=== PATIENT | female | born 1995 | race Caucasian/White ===

== ENCOUNTER 2018-12-30 10:08 | Emergency (ER) | payer OTHER ==
[~2018-12-30] VITALS: Ht 167.6 cm; Wt 59.0 kg
[2018-12-30] MEDS ORDERED: ONDANSETRON 4 MG/2 ML (SDV) Z0FRAN ONE (10:22)
[2018-12-30] MEDS ORDERED: NS IV 1000 ML 1,000 ML IV ONE (10:27)
[2018-12-30] MEDS ORDERED: ONDANSETRON 4 MG/2 ML (SDV) Z0FRAN IVP ONE (10:30)
[2018-12-30] MEDS ORDERED: NS IV 1000 ML 1,000 ML IV STA (10:35)
[2018-12-30] MEDS ORDERED: KETOROLAC 30 MG/ML VIAL IVP STA (10:35)
[2018-12-30 10:41] LABS: BASOPHILS % (AUTO) 0 % (0-10); EOSINOPHILS % (AUTO) 0 % (0-10); HEMATOCRIT 42 % (35-52); HEMOGLOBIN 14.8 G/DL (11.5-16.0); LYMPHOCYTES # (AUTO) 0.9 X 10^3 (1.0-4.0); LYMPHOCYTES % (AUTO) 21 % (12-44); MEAN CORPUSCULAR HEMOGLOBIN 30 PG (25-34); MEAN CORPUSCULAR HGB CONC 35 G/DL (32-36); MEAN CORPUSCULAR VOLUME 85 FL (80-99); MEAN PLATELET VOLUME 10.4 FL (7.4-10.4); MONOCYTES % (AUTO) 23 % (0-12); NEUTROPHILS # (AUTO) 2.3 X 10^3 (1.8-7.8); NEUTROPHILS % (AUTO) 56 % (42-75); PLATELET COUNT 194 10^3/uL (130-400); RED CELL DISTRIBUTION WIDTH 12.6 % (10.0-14.5); WHITE BLOOD COUNT 4.1 10^3/uL (4.3-11.0)
[2018-12-30] MEDS ORDERED: ONDA8TAB13 PO (10:48)
[2018-12-30] MEDS ORDERED: OMEP20TA7 PO (10:49)
--- NOTE | 2018-12-30 10:54 | ED Abdominal Pain ---
General Chief Complaint: Abdominal/GI Problems Stated Complaint: ABD PAIN;VOMITING BLOOD Nursing Triage Note: PT TO ROOM 6 PER W/C PT CO OF ABD PAIN SINCE YESTERDAY AND VOMITING, STATES VOMITED SOME BLOOD YESTERDAY, PT HAS TEMP 100.0 AX. PT HYPERVENTILATING, CO OF NUMBNESS IN HANDS. STATES PAIN 10/10. PT WAS SEEN AT [facility] YESTERDAY Sepsis Screen: No Definite Risk Source of Information: Patient Exam Limitations: No Limitations History of Present Illness Date Seen by Provider: Dec 30, 2018 Time Seen by Provider: 10:27 Initial Comments Here with report of increasing abdominal pain since yesterday and several days of abdominal pain. Apparently she's been vomiting intermittently over the last month and noted some blood yesterday and was seen had [facility]. She was started on omeprazole and ondansetron. Today she presents with fever and markedly worsening right lower quadrant abdominal pain. Does have pain that is encompassing the right side. Denies dysuria or diarrhea with last normal bowel movement yesterday and further normal urination this morning. Does have nausea currently. Complains of some upper respiratory symptoms including cough and runny nose with congestion. Timing/Duration: 1 Week, Getting Worse Severity/Quality: Moderate Location: RUQ, RLQ Radiation: LUQ, LLQ, Back Activities at Onset: None Modifying Factors: Worsens With Eating; Improves With Resting Associated Symptoms: Back Pain; No Chest Pain; Fever/Chills, Fatigue, Nausea/ Vomiting; No Shortness of Air, No Weakness; Other (hyperventilating) Allergies and Home Medications Allergies Coded Allergies: No Known Drug Allergies (Unverified , 12/30/18) Patient Home Medication List Home Medication List Reviewed: Yes Review of Systems Review of Systems Constitutional: see HPI, chills, fever EENTM: No Ear Pain; Nose Congestion, Throat Pain Respiratory: See HPI, Cough; Denies Shortness of Air Cardiovascular: No Symptoms Reported Gastrointestinal: See HPI; Denies Diarrhea, Denies Rectal Bleeding Genitourinary: No Symptoms Reported Musculoskeletal: see HPI Skin: No lesions, No rash Psychiatric/Neurological: Anxiety, Paresthesia (fingers bilateral) Endocrine: No Symptoms Reported All Other Systems Reviewed Negative Unless Noted: Yes Past Ksbpqru-Ilguoa-Vrllry Hx Past Med/Social Hx: Reviewed Nursing Past Med/Soc Hx Patient Social History Alcohol Use: Occasionally Uses Recreational Drug Use: No Smoking Status: Never a Smoker Recent Foreign Travel: No Contact w/Someone Who Travel: No Recent Infectious Disease Expo: No Recent Hopitalizations: No Past Medical History Surgeries: No Respiratory: No Cardiac: No Neurological: No Last Menstrual Period: Nov 30, 2018 Genitourinary: No Gastrointestinal: No Musculoskeletal: No Endocrine: No HEENT: No Cancer: No Psychosocial: No Integumentary: No Blood Disorders: No Family Medical History Reviewed Nursing Family Hx Physical Exam Vital Signs Vital Signs - First Documented 12/30/18 10:19 Temp 100.0 Pulse 109 Resp 20 B/P (MAP) 129/79 (96) Capillary Refill : Less Than 3 Seconds Height/Weight/BMI Height: 5'6.00" Weight: 130lbs. oz. 58.443573xw; BMI Method:Stated General Appearance: WD/WN, no apparent distress HEENT: PERRL/EOMI, TMs normal, pharyngeal erythema (mild) Neck: full range of motion, supple, normal inspection Respiratory: lungs clear, normal breath sounds Cardiovascular: regular rate, rhythm, no murmur Gastrointestinal: soft, guarding (right lower); No rebound; tenderness ( throughout the greatest on right side.) Extremities: non-tender, normal inspection Back: normal inspection, no CVA tenderness, no vertebral tenderness Neurologic/Psychiatric: alert, oriented x 3 Skin: normal color, warm/dry, other (erythema noted to the cheeks bilaterally) Focused Exam Lactate Level 12/30/18 10:25: Lactic Acid Level 1.50 Lactic Acid Level Laboratory Tests Test 12/30/18 10:25 Lactic Acid Level 1.50 MMOL/L (0.50-2.00) Progress/Results/Core Measures Results/Orders Lab Results Laboratory Tests Test 12/30/18 10:25 12/30/18 11:38 Range/Units White Blood Count 4.1 L 4.3-11.0 10^3/uL Red Blood Count 4.98 4.35-5.85 10^6/uL Hemoglobin 14.8 11.5-16.0 G/DL Hematocrit 42 35-52 % Mean Corpuscular Volume 85 80-99 FL Mean Corpuscular Hemoglobin 30 25-34 PG Mean Corpuscular Hemoglobin Concent 35 32-36 G/DL Red Cell Distribution Width 12.6 10.0-14.5 % Platelet Count 194 130-400 10^3/uL Mean Platelet Volume 10.4 7.4-10.4 FL Neutrophils (%) (Auto) 56 42-75 % Lymphocytes (%) (Auto) 21 12-44 % Monocytes (%) (Auto) 23 H 0-12 % Eosinophils (%) (Auto) 0 0-10 % Basophils (%) (Auto) 0 0-10 % Neutrophils # (Auto) 2.3 1.8-7.8 X 10^3 Lymphocytes # (Auto) 0.9 L 1.0-4.0 X 10^3 Monocytes # (Auto) 1.0 0.0-1.0 X 10^3 Eosinophils # (Auto) 0.0 0.0-0.3 10^3/uL Basophils # (Auto) 0.0 0.0-0.1 10^3/uL Neutrophils % (Manual) 55 % Lymphocytes % (Manual) 23 % Monocytes % (Manual) 16 % Eosinophils % (Manual) 0 % Basophils % (Manual) 0 % Band Neutrophils 6 % Blood Morphology Comment NORMAL Sodium Level 136 135-145 MMOL/L Potassium Level 3.5 L 3.6-5.0 MMOL/L Chloride Level 103 98-107 MMOL/L Carbon Dioxide Level 18 L 21-32 MMOL/L Anion Gap 15 H 5-14 MMOL/L Blood Urea Nitrogen 12 7-18 MG/DL Creatinine 0.92 0.60-1.30 MG/DL Estimat Glomerular Filtration Rate > 60 BUN/Creatinine Ratio 13 Glucose Level 106 H 70-105 MG/DL Lactic Acid Level 1.50 0.50-2.00 MMOL/L Calcium Level 9.8 8.5-10.1 MG/DL Corrected Calcium 8.5-10.1 MG/DL Total Bilirubin 0.6 0.1-1.0 MG/DL Aspartate Amino Transf (AST/SGOT) 24 5-34 U/L Alanine Aminotransferase (ALT/SGPT) 14 0-55 U/L Alkaline Phosphatase 52 40-136 U/L C-Reactive Protein High Sensitivity 4.20 H 0.00-0.50 MG/DL Total Protein 8.0 6.4-8.2 GM/DL Albumin 4.8 H 3.2-4.5 GM/DL Serum Test, Qualitative NEGATIVE NEGATIVE Urine Color YELLOW Urine Clarity CLEAR Urine pH 6 5-9 Urine Specific [place] 1.025 H 1.016-1.022 Urine Protein 2+ H NEGATIVE Urine Glucose (UA) NEGATIVE NEGATIVE Urine Ketones 4+ H NEGATIVE Urine Nitrite NEGATIVE NEGATIVE Urine Bilirubin NEGATIVE NEGATIVE Urine Urobilinogen NORMAL NORMAL MG/DL Urine Leukocyte Esterase 1+ H NEGATIVE Urine RBC (Auto) 1+ H NEGATIVE Urine RBC 0-2 /HPF Urine WBC 2-5 /HPF Urine Squamous Epithelial Cells 10-25 H /HPF Urine Crystals NONE /LPF Urine Bacteria MODERATE H /HPF Urine Casts NONE /LPF Urine Mucus LARGE H /LPF Urine Culture Indicated YES Micro Results Microbiology 12/30/18 Influenza Types A,B Antigen (AMINA) - Final, Complete My Orders Orders - ALLISON MCKEON MD Ondansetron Injection (Zofran Injectio (12/30/18 10:22) Cbc With Automated Diff (12/30/18 10:27) Comprehensive Metabolic Panel (12/30/18 10:27) Hs C Reactive Protein (12/30/18 10:27) Hcg,Qualitative Serum (12/30/18 10:27) Lactic Acid Analyzer (12/30/18 10:27) Ua Culture If Indicated (12/30/18 10:27) Blood Culture (12/30/18 10:27) Saline Lock/Iv-Start (12/30/18 10:27) Ns Iv 1000 Ml (Sodium Chloride 0.9%) (12/30/18 10:27) Ondansetron Injection (Zofran Injectio (12/30/18 10:30) Chest Pa/Lat (2 View) (12/30/18 10:35) Ns Iv 1000 Ml (Sodium Chloride 0.9%) (12/30/18 10:35) Ketorolac Injection (Toradol Injection) (12/30/18 10:35) Influenza A And B Antigens (12/30/18 10:37) Manual Differential (12/30/18 10:25) Ct Abdomen/Pelvis W (12/30/18 12:01) Iohexol Injection (Omnipaque 350 Mg/Ml 1 (12/30/18 12:15) Contrast Received (Contrast Received) (12/30/18 12:15) Ns (Ivpb) (Sodium Chloride 0.9% Ivpb Bag (12/30/18 12:15) Iohexol Injection (Omnipaque 350 Mg/Ml 1 (12/30/18 12:15) Contrast Received (Contrast Received) (12/30/18 12:15) Ns (Ivpb) (Sodium Chloride 0.9% Ivpb Bag (12/30/18 12:15) Iohexol Injection (Omnipaque 350 Mg/Ml 1 (12/30/18 12:30) Contrast Received (Contrast Received) (12/30/18 12:30) Ns (Ivpb) (Sodium Chloride 0.9% Ivpb Bag (12/30/18 12:30) Urine Culture (12/30/18 11:38) Medications Given in ED Current Medications Medications Dose Ordered Sig/Bryon Route Start Time Stop Time Status Last Admin Dose Admin Iohexol 100 ml ONCE ONCE IV 12/30/18 12:30 12/30/18 12:40 DC 12/30/18 12:22 100 ML Ondansetron HCl 4 mg ONCE ONCE IVP 12/30/18 10:30 12/30/18 10:31 DC 12/30/18 10:33 4 MG Sodium Chloride 100 ml ONCE ONCE IV 12/30/18 12:30 12/30/18 12:40 DC 12/30/18 12:22 80 ML Sodium Chloride 1,000 ml @ 0 mls/hr Q0M ONCE IV 12/30/18 10:27 12/30/18 10:29 DC 12/30/18 10:37 1,000 MLS/HR Vital Signs/I&O 12/30/18 10:19 Temp 100.0 Pulse 109 Resp 20 B/P (MAP) 129/79 (96) Blood Pressure Mean: 96 Progress Progress Note : Progress Note Seen and evaluated. IV, labs, UA, normal saline 1 L bolus, Zofran 4 mg IV and chest x-ray ordered. Added repeat normal saline 1 L bolus and influenza screen. We will get blood cultures and lactic acid. Monitor patient. CT abdomen pelvis ordered. Monitor patient. 1315: UA is not specifically positive but influenza is. CT abdomen and pelvis negative. Overall feels a little better. She is outside a window for Tamiflu. We did discuss outpatient therapy. Discharged home with return precautions. Patient verbalize understanding instructions and agreement with plan. Patient noted to be dehydrated on UA but did receive 2 L of normal saline. Diagnostic Imaging Diagonstic Imaging: Xray Plain Films/CT/US/NM/MRI: chest Comments [facility], [place] NAME: GIO ONEAL [facility] REC#: [id number] PT STATUS: REG ER : 1995 PHYSICIAN: ALLISON MCKEON MD ADMIT DATE: 12/30/18/ER Draft Date of Exam:12/30/18 CHEST PA/LAT (2 VIEW) INDICATION: Influenza. TECHNIQUE: Two views of the chest COMPARISON: None FINDINGS: The lung volumes are normal. No focal consolidation is seen. No large pleural effusion or pneumothorax is seen. The cardiomediastinal silhouette is normal in size and contour. No acute osseous abnormality is seen. There is slight right convex curvature of the thoracic spine. IMPRESSION: No acute pulmonary abnormality seen. Dictated on workstation # [id number] Dict: 12/30/18 1128 Trans: 12/30/18 1133 [id number] Interpreted by: CHALINO STEELE MD Electronically signed by: Laurence Imaging: CT Plain Films/CT/US/NM/MRI: abdomen, pelvis Comments [facility] [place] NAME: GIO ONEAL [facility] REC#: [id number] PT STATUS: REG ER : 1995 PHYSICIAN: ALLISON CMKEON MD ADMIT DATE: 12/30/18/ER Draft Date of Exam:12/30/18 CT ABDOMEN/PELVIS W PROCEDURE: CT abdomen and pelvis with contrast. TECHNIQUE: Multiple contiguous axial images were obtained through the abdomen and pelvis after administration of intravenous contrast. INDICATION: Lower abdominal pain. Nausea, vomiting, and diarrhea. COMPARISON: None. FINDINGS: The included lung bases are clear. CT Abdomen: The liver, spleen, pancreas, adrenal glands and kidneys all have a normal appearance. There is no mesenteric or retroperitoneal adenopathy. A normal appendix is visualized. The bowel loops are nondilated. There is no free fluid or free air. No focal bony abnormality is seen. CT Pelvis: Ureters and bladder are grossly normal. There is no free air, free fluid, loculated collection or adenopathy in the pelvis. The osseous and soft tissue structures are age appropriate. IMPRESSION: No acute abnormalities in the abdomen or pelvis. Dictated on workstation # [id number] Dict: 12/30/18 1233 Trans: 12/30/18 1247 [id number] Interpreted by: ELSA JAVIER MD Electronically signed by: Departure Impression Primary Impression: Influenza A Additional Impressions: Fever Qualified Codes: R50.9 - Fever, unspecified Myalgia Dehydration Disposition: HOME, SELF-CARE Condition: Stable Departure-Patient Inst. Decision time for Depature: 13:33 Referrals: MARQUIS BETTENCOURT BRETT D DO KIDO, TAKAAKI MD Patient Instructions: Acute Abdomen (Belly Pain), Adult (DC), Dehydration, Adult (DC), Flu, Adult (DC) Add. Discharge Instructions: All discharge instructions reviewed with patient and/or family. Voiced understanding. Drink plenty of fluids and get some rest. You should take Tylenol/ acetaminophen 1000 mg every 6 hours as needed for fever or pain. You may use limited amount of ibuprofen 400 mg every 6 hours as needed for fever or pain but make sure your taking that with a glass of water or food to prevent stomach upset. Continue other medications as previously prescribed. You should follow- up with [facility] in a few days for recheck and further evaluation. You should consider follow-up with a surgeon for further evaluation of her stomach problems to include possible upper endoscopy if indicated. You may use the surgeons listed or of her choosing. Return for worse pain, fever, vomiting, weakness, breathing problems or other concerns as needed. Work/School Note: Work Release Form Date Seen in the Emergency Department: Dec 30, 2018 Return to Work: Jan 01, 2019 Restrictions: Return-No Fever (24hrs) Copy Copies To 1: MARITZA DELANEY MD, TIMOTHY D MD Dec 30, 2018 10:54
[2018-12-30 11:09] LABS: ALANINE AMINOTRANSFERASE 14 U/L (0-55); ALBUMIN 4.8 GM/DL (3.2-4.5); ALKALINE PHOSPHATASE 52 U/L (40-136); BILIRUBIN,TOTAL 0.6 MG/DL (0.1-1.0); BUN/CREATININE RATIO 13; CALCIUM 9.8 MG/DL (8.5-10.1); CARBON DIOXIDE 18 MMOL/L (21-32); CHLORIDE 103 MMOL/L (98-107); CREATININE SERUM 0.92 MG/DL (0.60-1.30); GFR ESTIMATED > 60; GLUCOSE 106 MG/DL (70-105); POTASSIUM 3.5 MMOL/L (3.6-5.0); SODIUM 136 MMOL/L (135-145)
[2018-12-30 11:22] LABS: BAND NEUTROPHILS 6 %; BASOPHILS % (MANUAL) 0 %; EOSINOPHILS % (MANUAL) 0 %; LYMPHOCYTES % (MANUAL) 23 %; MONOCYTES % (MANUAL) 16 %; NEUTROPHILS % (MANUAL) 55 %; RBC MORPH NORMAL
--- NOTE | 2018-12-30 11:34 | Diagnostic Imaging Report ---
INDICATION: Influenza. TECHNIQUE: Two views of the chest COMPARISON: None FINDINGS: The lung volumes are normal. No focal consolidation is seen. No large pleural effusion or pneumothorax is seen. The cardiomediastinal silhouette is normal in size and contour. No acute osseous abnormality is seen. There is slight right convex curvature of the thoracic spine. IMPRESSION: No acute pulmonary abnormality seen. Dictated by: Dictated on workstation # [id number]
[2018-12-30] MEDS ORDERED: NS 100 ML (IVPB) BAG IV ONE ×3 (12:15→12:30)
[2018-12-30] MEDS ORDERED: IOHEXOL 350 MG/ML 100 ML (OMNIPAQUE 350) VIAL IV ONE ×3 (12:15→12:30)
[2018-12-30] MEDS ORDERED: RECEIVED CONTRAST (Hold Metformin) IV SCH ×3 (12:15→12:30)
[2018-12-30 12:28] LABS: BACTERIA,URINE MODERATE /HPF; BILIRUBIN,URINE NEGATIVE (NEGATIVE); CLARITY,URINE CLEAR; COLOR,URINE YELLOW; GLUCOSE, URINE (UA) NEGATIVE (NEGATIVE); KETONES,URINE 4+ (NEGATIVE); LEUKOCYTE ESTERASE ,URINE 1+ (NEGATIVE); NITRITE,URINE NEGATIVE (NEGATIVE); PH,URINE 6 (5-9); PROTEIN,URINE 2+ (NEGATIVE); RBC,URINE 0-2 /HPF; UROBILINOGEN,URINE NORMAL (NORMAL)
--- NOTE | 2018-12-30 12:47 | Diagnostic Imaging Report ---
PROCEDURE: CT abdomen and pelvis with contrast. TECHNIQUE: Multiple contiguous axial images were obtained through the abdomen and pelvis after administration of intravenous contrast. INDICATION: Lower abdominal pain. Nausea, vomiting, and diarrhea. COMPARISON: None. FINDINGS: The included lung bases are clear. CT Abdomen: The liver, spleen, pancreas, adrenal glands and kidneys all have a normal appearance. There is no mesenteric or retroperitoneal adenopathy. A normal appendix is visualized. The bowel loops are nondilated. There is no free fluid or free air. No focal bony abnormality is seen. CT Pelvis: Ureters and bladder are grossly normal. There is no free air, free fluid, loculated collection or adenopathy in the pelvis. The osseous and soft tissue structures are age appropriate. IMPRESSION: No acute abnormalities in the abdomen or pelvis. Dictated by: Dictated on workstation # [id number]
[2018-12-30 14:15] VITALS: BP 110/72
== END 2018-12-30 14:15 | disposition home or self-care (01) ==
LOC: ER 10:12
DX: J10.1 Influenza due to other identified influenza virus with other respiratory manifestations (principal); M79.10 Myalgia, unspecified site; E86.0 Dehydration
CPT/HCPCS: 36415; 71046; 74177; 80053; 81000; 83605; 84703; 85007; 85027; 86141; 87040; 87088; 87804

== ENCOUNTER 2021-09-13 22:55 | Emergency (ER) | payer OTHER ==
[~2021-09-13] VITALS: Ht 167.6 cm; Wt 59.4 kg
[~2021-09-13 22:55] MED LIST: OMEP20TA7 PO; ONDA8TAB13 PO
[2021-09-13 23:02] VITALS: BP 116/75
[2021-09-13] MEDS ORDERED: LACTATED RINGERS 1,000 ML IV ONE (23:15)
[2021-09-13] MEDS ORDERED: ONDANSETRON 4 MG/2 ML (SDV) Z0FRAN ONE (23:22)
[2021-09-13] MEDS ORDERED: FAMOTIDINE 20MG/2ML IV (PEPCID) ONE (23:22)
[2021-09-13] MEDS ORDERED: FAMOTIDINE 20MG/2ML IV (PEPCID) IV STA (23:22)
[2021-09-13] MEDS ORDERED: ACETAMINOPHEN 500 MG TAB (TYLENOL) PO STA (23:22)
[2021-09-13] MEDS ORDERED: ACETAMINOPHEN 500 MG TAB (TYLENOL) ONE (23:22)
[2021-09-13 23:29] LABS: BASOPHILS % (AUTO) 0 % (0-10); EOSINOPHILS % (AUTO) 0 % (0-10); HEMATOCRIT 40 % (35-52); HEMOGLOBIN 14.5 g/dL (11.5-16.0); LYMPHOCYTES # (AUTO) 1.8 10^3/uL (1.0-4.0); LYMPHOCYTES % (AUTO) 26 % (12-44); MEAN CORPUSCULAR HEMOGLOBIN 30 pg (25-34); MEAN CORPUSCULAR HGB CONC 36 g/dL (32-36); MEAN CORPUSCULAR VOLUME 84 fL (80-99); MEAN PLATELET VOLUME 9.6 fL (9.0-12.2); MONOCYTES # (AUTO) 0.8 10^3/uL (0.0-1.0); MONOCYTES % (AUTO) 11 % (0-12); NEUTROPHILS # (AUTO) 4.3 10^3/uL (1.8-7.8); NEUTROPHILS % (AUTO) 62 % (42-75); PLATELET COUNT 211 10^3/uL (130-400); WHITE BLOOD COUNT 6.9 10^3/uL (4.3-11.0)
[2021-09-13] MEDS ORDERED: ONDANSETRON 4 MG/2 ML (SDV) Z0FRAN IVP ONE (23:30)
--- NOTE | 2021-09-13 23:33 | ED General ---
General Stated Complaint: COVID+ ON 09/10, N/V, WEAK Source of Information: Patient Exam Limitations: No Limitations History of Present Illness Date Seen by Provider: Sep 13, 2021 Time Seen by Provider: 23:10 Initial Comments Here with report of being Covid positive on 09/10 with symptom onset on 09/02. She states that she got this from her girlfriend who got it from work. She is not vaccinated. Here with nausea, vomiting and diarrhea as well as some upset stomach and body aches overall. She has been taking ibuprofen. She is concerned that she is dehydrated. Denies shortness of breath or severe cough. Overall just feels very tired and weak. Denies blood in urine or stool. Timing/Duration: 3-4 Days, Getting Worse Severity: Moderate Associated Systoms: No Cough; Fever/Chills, Malaise, Nausea/Vomiting; No Shortness of Air; Weakness Allergies and Home Medications Allergies Coded Allergies: No Known Drug Allergies (Unverified , 12/30/18) Patient Home Medication List Home Medication List Reviewed: Yes Omeprazole (Omeprazole) 20 Mg Tablet.dr, 20 MG PO, (Reported) Entered as Reported by: SIXTO WOODY on 12/30/18 1049 Ondansetron (Ondansetron Odt) 8 Mg Tab.rapdis, 8 MG PO, (Reported) Entered as Reported by: SIXTO WOODY on 12/30/18 1048 Review of Systems Review of Systems Constitutional: see HPI; No chills, No fever EENTM: no symptoms reported Respiratory: see HPI Cardiovascular: no symptoms reported Gastrointestinal: see HPI Genitourinary: no symptoms reported Musculoskeletal: joint pain, muscle pain Skin: no symptoms reported All Other Systems Reviewed Negative Unless Noted: Yes Past Rxalldk-Yvmfpt-Jtntwj Hx Patient Social History Tobacco Use?: No Substance use?: Yes Substance type: Marijuana Substance frequency: Once in a while Alcohol Use?: Yes Alcohol Frequency: Once in a while Past Medical History Surgeries: No Respiratory: No Cardiac: No Neurological: No Genitourinary: No Gastrointestinal: No Musculoskeletal: No Endocrine: No HEENT: No Cancer: No Psychosocial: No Integumentary: No Blood Disorders: No Family Medical History Reviewed Nursing Family Hx Physical Exam Vital Signs Vital Signs - First Documented 09/13/21 23:02 Temp 36.8 Pulse 81 Resp 18 B/P (MAP) 116/75 (89) Pulse Ox 98 O2 Delivery Room Air Capillary Refill : Height, Weight, BMI Height: 5'6.00" Weight: 130lbs. oz. 58.088041vb; BMI Method:Stated General Appearance: WD/WN, Mild Distress HEENT: PERRL/EOMI, Pharynx Normal Neck: Non Tender, Supple Respiratory: Lungs Clear, Normal Breath Sounds Cardiovascular: Regular Rate, Rhythm, No Murmur Gastrointestinal: Soft, Tenderness (Mild diffuse without rebound or guarding) Back: Normal Inspection, No CVA Tenderness, No Vertebral Tenderness Extremity: Normal Range of Motion, Non Tender Neurologic/Psychiatric: Alert, Oriented x3 Skin: Normal Color, Warm/Dry Progress/Results/Core Measures Suspected Sepsis SIRS Temperature: Pulse: Respiratory Rate: Laboratory Tests 09/13/21 23:10: White Blood Count 6.9 Blood Pressure / Mean: Laboratory Tests 09/13/21 23:10: Creatinine 0.74, Platelet Count 211, Total Bilirubin 0.8 Results/Orders Lab Results Laboratory Tests Test 09/13/21 23:10 09/14/21 00:25 Range/Units White Blood Count 6.9 4.3-11.0 10^3/uL Red Blood Count 4.79 3.80-5.11 10^6/uL Hemoglobin 14.5 11.5-16.0 g/dL Hematocrit 40 35-52 % Mean Corpuscular Volume 84 80-99 fL Mean Corpuscular Hemoglobin 30 25-34 pg Mean Corpuscular Hemoglobin Concent 36 32-36 g/dL Red Cell Distribution Width 11.9 10.0-14.5 % Platelet Count 211 130-400 10^3/uL Mean Platelet Volume 9.6 9.0-12.2 fL Immature Granulocyte % (Auto) 0 % Neutrophils (%) (Auto) 62 42-75 % Lymphocytes (%) (Auto) 26 12-44 % Monocytes (%) (Auto) 11 0-12 % Eosinophils (%) (Auto) 0 0-10 % Basophils (%) (Auto) 0 0-10 % Neutrophils # (Auto) 4.3 1.8-7.8 10^3/uL Lymphocytes # (Auto) 1.8 1.0-4.0 10^3/uL Monocytes # (Auto) 0.8 0.0-1.0 10^3/uL Eosinophils # (Auto) 0.0 0.0-0.3 10^3/uL Basophils # (Auto) 0.0 0.0-0.1 10^3/uL Immature Granulocyte # (Auto) 0.0 0.0-0.1 10^3/uL Sodium Level 138 135-145 MMOL/L Potassium Level 3.1 L 3.6-5.0 MMOL/L Chloride Level 102 98-107 MMOL/L Carbon Dioxide Level 19 L 21-32 MMOL/L Anion Gap 17 H 5-14 MMOL/L Blood Urea Nitrogen 6 L 7-18 MG/DL Creatinine 0.74 0.60-1.30 MG/DL Estimat Glomerular Filtration Rate 96 BUN/Creatinine Ratio 8 Glucose Level 108 H 70-105 MG/DL Calcium Level 8.9 8.5-10.1 MG/DL Corrected Calcium 8.5 8.5-10.1 MG/DL Total Bilirubin 0.8 0.1-1.0 MG/DL Aspartate Amino Transf (AST/SGOT) 16 5-34 U/L Alanine Aminotransferase (ALT/SGPT) 16 0-55 U/L Alkaline Phosphatase 42 40-136 U/L C-Reactive Protein High Sensitivity 0.26 0.00-0.50 MG/DL Total Protein 7.4 6.4-8.2 GM/DL Albumin 4.5 3.2-4.5 GM/DL Urine Color YELLOW Urine Clarity CLEAR Urine pH 6.0 5-9 Urine Specific [place] <=1.005 1.016-1.022 Urine Protein NEGATIVE NEGATIVE Urine Glucose (UA) NEGATIVE NEGATIVE Urine Ketones 3+ H NEGATIVE Urine Nitrite NEGATIVE NEGATIVE Urine Bilirubin NEGATIVE NEGATIVE Urine Urobilinogen 0.2 < = 1.0 MG/DL Urine Leukocyte Esterase NEGATIVE NEGATIVE Urine RBC (Auto) NEGATIVE NEGATIVE Urine RBC NONE /HPF Urine WBC NONE /HPF Urine Squamous Epithelial Cells 0-2 /HPF Urine Crystals NONE /LPF Urine Bacteria NEGATIVE /HPF Urine Casts NONE /LPF Urine Mucus SMALL H /LPF Urine Culture Indicated NO My Orders Orders - ALLISON MCKEON MD Cbc With Automated Diff (09/13/21 23:09) Comprehensive Metabolic Panel (09/13/21 23:09) Hs C Reactive Protein (09/13/21 23:09) Ua Culture If Indicated (09/13/21 23:09) Ed Iv/Invasive Line Start (09/13/21 23:09) Lactated Ringers (Lr 1000 Ml Iv Solution (09/13/21 23:15) Ondansetron Injection (Zofran Injectio (09/13/21 23:30) Famotidine Injection (Pepcid Injection) (09/13/21 23:22) Acetaminophen Tablet (Tylenol Tablet) (09/13/21 23:22) Acetaminophen Tablet (Tylenol Tablet) (09/13/21 23:22) Ondansetron Injection (Zofran Injectio (09/13/21 23:22) Famotidine Injection (Pepcid Injection) (09/13/21 23:22) Lactated Ringers (Lr 1000 Ml Iv Solution (09/14/21 00:20) Medications Given in ED Current Medications Medications Dose Ordered Sig/Bryon Route Start Time Stop Time Status Last Admin Dose Admin Lactated Ringer's 1,000 ml @ 0 mls/hr Q0M ONCE IV 09/13/21 23:15 09/13/21 23:16 DC 09/13/21 23:15 1,000 MLS/HR Ondansetron HCl 4 mg ONCE ONCE IVP 09/13/21 23:30 09/13/21 23:31 DC 09/13/21 23:10 4 MG Vital Signs/I&O 09/13/21 09/13/21 23:02 23:02 Temp 36.8 Pulse 81 Resp 18 B/P (MAP) 116/75 (89) Pulse Ox 98 O2 Delivery Room Air Room Air Capillary Refill : Progress Note : Progress Note Seen and evaluated. IV, labs, UA, LR 1 L bolus, Zofran 4 mg IV, Pepcid 20 mg IV and Tylenol 1 g p.o. ordered. Monitor patient. Symptom onset on 09/02 with positive test on 09/10. For symptom onset, she is outside window for monoclonal antibody. 0059: Repeat LR 1 L bolus ordered. Labs reviewed and UA reviewed. Otherwise okay. She is doing much better now. Discharge when complete fluids. Discharged home with return precautions. Patient verbalized understanding instructions and agreement with plan and states she feels much better now. Departure Impression Primary Impression: COVID-19 virus infection Additional Impressions: Dehydration Vomiting Qualified Codes: R11.2 - Nausea with vomiting, unspecified Disposition: 01 HOME, SELF-CARE Condition: Improved Departure-Patient Inst. Decision time for Depature: 01:00 Referrals: NO,LOCAL PHYSICIAN (PCP) Primary Care Physician Patient Instructions: COVID-19 ED, Nausea and Vomiting, Adult (DC), Dehydration, Adult (DC) Add. Discharge Instructions: Drink plenty of fluids. You should drink fluids that have some sugar content such as Gatorade, Sprite or twan john. Eat if you are able but use a light diet until stomach upset improves. You may take uaps-dos-xsiowyt Pepcid or the generic famotidine, 20 mg daily for the next week or so to reduce stomach acid. You may take Tylenol 1000 mg every 6-8 hours as needed for fever or pain. You may take ibuprofen 400 mg every 8 hours as needed for fever or pain. Return for worse pain, fever, vomiting, weakness, breathing problems or other concerns as needed. ALLISON MCKEON MD Sep 13, 2021 23:32
[2021-09-13 23:38] LABS: ALBUMIN 4.5 GM/DL (3.2-4.5)
[2021-09-13 23:39] LABS: POTASSIUM 3.1 MMOL/L (3.6-5.0)
[2021-09-13 23:40] LABS: CALCIUM 8.9 MG/DL (8.5-10.1)
[2021-09-13 23:41] LABS: TOTAL PROTEIN 7.4 GM/DL (6.4-8.2)
[2021-09-13 23:43] LABS: BILIRUBIN,TOTAL 0.8 MG/DL (0.1-1.0)
[2021-09-13 23:45] LABS: CREATININE SERUM 0.74 MG/DL (0.60-1.30)
[2021-09-14] MEDS ORDERED: LACTATED RINGERS 1,000 ML IV STA (00:20)
[2021-09-14 00:34] LABS: BILIRUBIN,URINE NEGATIVE (NEGATIVE); CLARITY,URINE CLEAR; COLOR,URINE YELLOW; GLUCOSE, URINE (UA) NEGATIVE (NEGATIVE); KETONES,URINE 3+ (NEGATIVE); LEUKOCYTE ESTERASE ,URINE NEGATIVE (NEGATIVE); NITRITE,URINE NEGATIVE (NEGATIVE); PROTEIN,URINE NEGATIVE (NEGATIVE)
[2021-09-14 00:46] LABS: BACTERIA,URINE NEGATIVE /HPF; SQUAMOUS EPITHELIAL CELL,UR 0-2 /HPF
== END 2021-09-14 01:31 | disposition home or self-care (01) ==
LOC: EDUNIT# 22:55 → ER 22:58
DX: U07.1 COVID-19 (principal); E86.0 Dehydration; R11.2 Nausea with vomiting, unspecified
CPT/HCPCS: 36415; 80053; 81000; 85025; 86141; 96374; 96375